=== PATIENT | female | born 1980 | race Two or more races ===

== ENCOUNTER 2019-06-03 13:40 | Emergency (ER) | payer BC, OTHER ==
[~2019-06-03] VITALS: Ht 165.1 cm; Wt 68.9 kg
--- NOTE | 2019-06-03 13:40 | NUR ---
PT BIB SELF C/O GENERALIZED BODY ACHES S/P SYNCOPAL EPISODE AND FALL LAST SATURDAY, PT IS AAOX4, NOT IN RESPIRATORY DISTRESS, V/S STABLE, KEPT RESTED AND COMFORTABLE, WILL CONTINUE TO MONITOR.
--- NOTE | 2019-06-03 14:00 | NUR ---
URINE SPECIMEN COLLECTED AND SENT TO LAB.
--- NOTE | 2019-06-03 14:10 | NUR ---
CORINA PERDOMO AT BEDSIDE FOR EVAL.
[2019-06-03] MEDS ORDERED: ACETAMINOPHEN ES 500 MG TABLET ONE (14:41)
[2019-06-03] MEDS ORDERED: ACETAMINOPHEN 325 MG TABLET PO ONE (15:00)
--- NOTE | 2019-06-03 15:20 | NUR ---
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
[2019-06-03] MEDS ORDERED: ONDANSETRON 4 MG TAB.RAPDIS ONE (17:15)
[2019-06-03] MEDS ORDERED: MORPHINE SULFATE INJ 4 MG/ML DISP.SYRIN ONE (17:15)
[2019-06-03] MEDS ORDERED: ONDANSETRON 4 MG TAB.RAPDIS SL ONE (17:30)
[2019-06-03] MEDS ORDERED: MORPHINE SULFATE INJ 4 MG/ML DISP.SYRIN IM ONE (17:30)
--- NOTE | 2019-06-03 17:42 | NUR ---
Patient discharged to home in stable condition. Written and verbal after care instructions given. Patient verbalizes understanding of instruction.
[2019-06-03 17:44] VITALS: BP 120/71
== END 2019-06-03 17:46 | disposition home or self-care (01) ==
LOC: ER 13:40
DX: S93.492A Sprain of other ligament of left ankle, initial encounter (principal); S39.012A Strain of muscle, fascia and tendon of lower back, initial encounter; S00.531A Contusion of lip, initial encounter; S80.12XA Contusion of left lower leg, initial encounter; S80.11XA Contusion of right lower leg, initial encounter; R55 Syncope and collapse; W18.39XA Other fall on same level, initial encounter; Y93.01 Activity, walking, marching and hiking; Y92.89 Other specified places as the place of occurrence of the external cause; Y99.8 Other external cause status
CPT/HCPCS: 72100; 72170; 73590 ×2; 73610; 73630; 84703; 93005; 96372; 99284; J2270; Q0162